=== PATIENT | female | born 1960 | race Hispanic/Latino ===

== ENCOUNTER 2017-04-12 13:48 | Emergency (ER) | payer MEDICARE ==
[2017-04-12] MEDS ORDERED: Nitroglycerin 2% Ointment 1 INCH/1 GM Packet ONE (14:26)
[2017-04-12 14:34] LABS: #Basophils 0.1 thou/uL (0.0-0.2); #Eosinphils 0.8 thou/uL (0.0-0.7); #Lymphocytes 1.3 thou/uL (1.20-3.40); #Monocytes 0.8 thou/uL (0.11-0.59); #Neutrophils 2.5 thou/uL (1.40-6.50); %Basophils 1.8 % (0.0-1.0); %Eosinophils 13.9 % (0.0-10.0); %Monocytes 14.3 % (0.0-10.0); %Neutrophils 46.1 % (42.0-75.0); Hemoglobin 12.4 g/dL (12.0-16.0); Mean Corpuscular HGB CONC 32.6 g/dL (32.0-36.0); Mean Platelet Volume 6.2 fL (7.4-10.4); Platelet Count 207 thou/uL (130-400); RBC Distribution Width 12.2 % (11.5-14.5); Red Blood Cell (RBC) Count 4.01 mill/uL (4.20-5.40); White Blood Cell (WBC) Count 5.4 thou/uL (4.8-10.8)
[2017-04-12 14:38] LABS: PTT 29.9 SEC (22.9-36.1); Prothrombin Time 13.4 SEC (12.0-14.7)
[2017-04-12 14:49] LABS: ALT (SGPT) 57 U/L (8-55); AST (SGOT) 58 U/L (5-34); Albumin 3.5 g/dL (3.5-5.0); Alkaline Phosphatase 124 U/L (40-150); Anion Gap 12 mmol/L (10-20); BUN (Urea Nitrogen) 17 mg/dL (9.8-20.1); Bilirubin, Total 0.6 mg/dL (0.2-1.2); Calc. Creatinine Clearance 0 mL/min (70-130); Calcium 8.6 mg/dL (7.8-10.44); Carbon Dioxide 22 mmol/L (22-29); Chloride 113 mmol/L (98-107); Estimated GFR-MDRD 90; Globulin 2.9 g/dL (2.4-3.5); Glucose 94 mg/dL (70-105); Protein, Total 6.4 g/dL (6.0-8.3); Sodium 143 mmol/L (136-145)
[2017-04-12 14:50] LABS: Troponin I Less than 0.010 ng/mL (< 0.028)
[2017-04-12] MEDS ORDERED: Morphine 4 MG/ML VIAL ONE (15:32)
--- NOTE | 2017-04-12 16:07 | CT ---
CHEST CT NONCONTRAST Date: 04/12/17 INDICATION: Chest pain. FINDINGS: No lobar consolidation, effusion, or pneumothorax. Regional soft tissues, including lymph nodes and v asculature are limited in assessment by the absence of IV contrast administration. There is subtle no dularity to the hepatic contour, incompletely imaged. No acute osseous pathology. There is minimal va scular calcification. IMPRESSION: 1. No consolidation of the lungs. 2. Suggestion of a cirrhotic morphology of the liver, although incompletely imaged. Consider dedicat ed imaging follow-up for further evaluation on a nonemergent basis. POS: [facility]
== END 2017-04-12 17:27 | disposition short-term general hospital (02) ==
LOC: MADERS 13:48
DX: R07.2 Precordial pain (principal); I25.10 Atherosclerotic heart disease of native coronary artery without angina pectoris; J45.909 Unspecified asthma, uncomplicated; Z86.73 Personal history of transient ischemic attack (TIA), and cerebral infarction without residual deficits; Z79.899 Other long term (current) drug therapy
CPT/HCPCS: 71250; 80053; 82553; 83880; 84484; 85025; 85610; 85730; 93005; 96374; J2270

== ENCOUNTER 2017-09-08 16:29 | Emergency (ER) | payer MEDICARE ==
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
[2017-09-08] MEDS ORDERED: Ibuprofen 800 MG TAB ONE (20:15)
[2017-09-08] MEDS ORDERED: Ondansetron ODT 4 MG TAB ONE (20:19)
== END 2017-09-08 20:23 | disposition home or self-care (01) ==
LOC: MADERS 16:29
DX: S10.93XA Contusion of unspecified part of neck, initial encounter (principal); S80.01XA Contusion of right knee, initial encounter; F07.81 Postconcussional syndrome; I25.2 Old myocardial infarction; I10 Essential (primary) hypertension; I25.10 Atherosclerotic heart disease of native coronary artery without angina pectoris; J45.909 Unspecified asthma, uncomplicated; F32.9 Major depressive disorder, single episode, unspecified; Z79.899 Other long term (current) drug therapy; V23.4XXA Motorcycle driver injured in collision with car, pick-up truck or van in traffic accident, initial encounter
CPT/HCPCS: 70450; 70486; Q0162

== ENCOUNTER 2017-10-23 15:31 | Emergency (ER) | payer MEDICARE ==
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
== END 2017-10-23 16:35 | disposition home or self-care (01) ==
LOC: MADERS 15:31
DX: S90.31XA Contusion of right foot, initial encounter (principal); S90.414A Abrasion, right lesser toe(s), initial encounter; I10 Essential (primary) hypertension; I25.2 Old myocardial infarction; I25.10 Atherosclerotic heart disease of native coronary artery without angina pectoris; J45.909 Unspecified asthma, uncomplicated; F32.9 Major depressive disorder, single episode, unspecified; Z79.899 Other long term (current) drug therapy; Z86.73 Personal history of transient ischemic attack (TIA), and cerebral infarction without residual deficits; W20.8XXA Other cause of strike by thrown, projected or falling object, initial encounter